=== PATIENT | female | born 1995 | race Two or more races ===

== ENCOUNTER 2017-10-04 16:30 | Emergency (ER) | payer BC, OTHER ==
[~2017-10-04] VITALS: Ht 160 cm; Wt 118.4 kg
[2017-10-04 20:15] VITALS: BP 136/76
[2017-10-04 22:04] LABS: Basophils # (auto) 0.1 uL; Eosinophils # (auto) 0.1 uL; Monocytes # (auto) 0.7 uL
[2017-10-04 22:05] LABS: Urine Bacteria FEW /hpf (None Seen); Urine Blood Negative /uL (Negative); Urine Mucus FEW (None Seen); Urine Specific Gravity 1.023 (1.001-1.035); Urine WBC 1 /hpf (0 - 5)
[2017-10-04 22:06] LABS: Basophils % (auto) 0.9 % (0.0-2.0); Hematocrit 39.2 % (36.0-46.0); Hemoglobin 12.9 g/dL (12.2-16.2); Lymphocytes # (auto) 3.9 uL; Lymphocytes % (auto) 33.9 % (10.0-50.0); Mean Corpuscular Hemoglobin 26.3 pg (28.0-32.0); Mean Corpuscular Hgb Conc. 32.9 g/dL (32.0-36.0); Mean Corpuscular Volume 79.9 fL (80.0-100.0); Monocytes % (auto) 6.4 % (0.0-12.0); Neutrophils # (auto) 6.6 uL; Neutrophils % (auto) 57.8 % (37.0-80.0); Platelet Count (auto) 367 10^3/uL (140-450); Red Blood Cells 4.91 10^6/uL (4.0-5.20); Red Cell Distribution Width 13.7 % (11.8-14.3); White Blood Cell 11.4 10^3/uL (4.4-10.8)
[2017-10-04 22:17] LABS: Albumin 3.7 g/dL (3.4-5.0); Calcium 8.5 mg/dL (8.5-10.1); Potassium 3.8 mmol/L (3.5-5.1)
[2017-10-04 22:19] LABS: Bilirubin, Total 0.3 mg/dL (0.2-1.0); Total Protein 8.4 g/dL (6.4-8.2)
== END 2017-10-04 23:10 | disposition home or self-care (01) ==
LOC: ER 16:38
DX: J32.9 Chronic sinusitis, unspecified (principal); N39.0 Urinary tract infection, site not specified; R20.2 Paresthesia of skin; E66.9 Obesity, unspecified
CPT/HCPCS: 36415; 70450; 80053; 81001; 82962; 85025